=== PATIENT | female | born 1995 | race Two or more races ===

== ENCOUNTER 2017-08-02 13:32 | Emergency (ER) | payer MEDICAID ==
[~2017-08-02] VITALS: Ht 162.6 cm; Wt 66.2 kg
[2017-08-02 16:14] VITALS: BP 118/64
== END 2017-08-02 18:25 | disposition home or self-care (01) ==
LOC: ER 13:39
DX: O20.0 Threatened abortion (principal); O99.321 Drug use complicating pregnancy, first trimester; F12.10 Cannabis abuse, uncomplicated; F15.10 Other stimulant abuse, uncomplicated; O99.331 Smoking (tobacco) complicating pregnancy, first trimester; F17.210 Nicotine dependence, cigarettes, uncomplicated; Z3A.01 Less than 8 weeks gestation of pregnancy
CPT/HCPCS: 36415; 76801; 76817; 84702; 99285; J7030

== ENCOUNTER 2017-08-20 02:16 | Emergency (ER) | payer MEDICAID ==
[~2017-08-20] VITALS: Ht 162.6 cm; Wt 65.8 kg
[2017-08-20 03:17] VITALS: BP 93/49
[2017-08-20 04:46] LABS: Urine Specific Gravity 1.031 (1.001-1.035)
[2017-08-20 04:47] LABS: Urine Blood Normal /uL (Negative); Urine WBC 15 /hpf (0 - 5)
[2017-08-20 04:48] LABS: Urine Bacteria FEW /hpf (None Seen); Urine Mucus FEW (None Seen)
== END 2017-08-20 04:55 | disposition left against medical advice (07) ==
LOC: ER 02:17
DX: R11.2 Nausea with vomiting, unspecified (principal); Z53.21 Procedure and treatment not carried out due to patient leaving prior to being seen by health care provider
CPT/HCPCS: 81001

== ENCOUNTER 2019-10-27 09:45 | Observation (INO) | payer MEDICAID | END 2019-10-27 11:10 | disposition home or self-care (01) | DRG 560 | LOC: MERGE 09:45 → LDRP 09:45 | PROVIDERS: ADMIT Specialist; ATTEND Specialist | DX: O48.0 Post-term pregnancy (principal); Z37.0 Single live birth; Z3A.40 40 weeks gestation of pregnancy | CPT/HCPCS: 59025; 76818; 81002; G0378 ==

== ENCOUNTER 2019-10-29 08:34 | Observation (INO) | payer MEDICAID | END 2019-10-29 09:46 | disposition home or self-care (01) | DRG 566 | LOC: LDRP 08:34 → MERGE 08:34 → EDUNIT# 08:34 | PROVIDERS: ADMIT Specialist; ATTEND Specialist | DX: O48.0 Post-term pregnancy (principal); Z3A.40 40 weeks gestation of pregnancy | CPT/HCPCS: 59025; 76818; 81002; G0378 ==

== ENCOUNTER 2019-10-31 09:20 | Observation (INO) | payer MEDICAID ==
[2019-11-01] MEDS ORDERED: PREN-96 PO (13:00)
== END 2019-10-31 10:48 | disposition home or self-care (01) | DRG 566 ==
LOC: LDRP 09:20
PROVIDERS: ADMIT Specialist; ATTEND Specialist
DX: O48.0 Post-term pregnancy (principal); Z3A.40 40 weeks gestation of pregnancy
CPT/HCPCS: 59025; 76818; 81002; G0378

== ENCOUNTER 2019-10-31 23:33 | Observation (INO) | payer MEDICAID ==
[~2019-10-31] VITALS: Ht 162.6 cm; Wt 86.2 kg
[2019-11-01] MEDS ORDERED: PREN-96 PO (13:00)
== END 2019-11-01 01:11 | disposition home or self-care (01) | DRG 566 ==
LOC: LDRP 23:33
PROVIDERS: ADMIT Specialist; ATTEND Specialist
DX: O48.0 Post-term pregnancy (principal); O62.9 Abnormality of forces of labor, unspecified; Z3A.40 40 weeks gestation of pregnancy
CPT/HCPCS: 59025; 76818; 81002; 84112; G0378

== ENCOUNTER 2019-11-01 12:30 | Observation (INO) | payer MEDICAID ==
[2019-11-01] MEDS ORDERED: PREN-96 PO (13:00)
== END 2019-11-01 14:30 | disposition home or self-care (01) | DRG 566 ==
LOC: LDRP 12:30
PROVIDERS: ADMIT Specialist; ATTEND Specialist
DX: O62.9 Abnormality of forces of labor, unspecified (principal); O48.0 Post-term pregnancy; Z3A.40 40 weeks gestation of pregnancy
CPT/HCPCS: 59025; 81002; 84112; G0378

== ENCOUNTER 2019-11-02 11:00 | Observation (INO) | payer MEDICAID ==
[~2019-11-02 11:00] MED LIST: PREN-96 PO
== END 2019-11-02 11:40 | disposition home or self-care (01) | DRG 566 ==
LOC: LDRP 11:00
PROVIDERS: ADMIT Specialist; ATTEND Specialist
DX: O48.0 Post-term pregnancy (principal); Z3A.40 40 weeks gestation of pregnancy
CPT/HCPCS: 59025; 81002; G0378

== ENCOUNTER 2019-11-03 07:55 | Inpatient (IN) | payer MEDICAID ==
[~2019-11-03] VITALS: Ht 162.6 cm; Wt 86.2 kg
[2019-11-03] MEDS ORDERED: LACT. RINGERS/OXYTOCIN 20UNITS 1,000 ML IV SCH (08:23)
[2019-11-03] MEDS ORDERED: PHISODERM TOP SOLN 240ML BTL TOP PRN (08:30)
[2019-11-03] MEDS ORDERED: CARBOPROST TROMETHAMINE 250 MCG/1ML VIAL IM PRN (08:30)
[2019-11-03] MEDS ORDERED: METHYLERGONOVINE MALEATE 0.2 MG/ML AMP IM PRN (08:30)
[2019-11-03] MEDS ORDERED: NALBUPHINE HCL 10 MG/1ml INJECTION IV PRN (08:30)
[2019-11-03] MEDS ORDERED: DERMOPLAST 60ML BOTTLE TOP PRN (08:30)
[2019-11-03] MEDS ORDERED: LIDOCAINE 2%HCL (LOCAL ANESTH.) INJ 20ML MDV ID ONE (08:30)
[2019-11-03] MEDS ORDERED: PENICILLIN G POT 5MIL/D5 50ML 50 ML IV ONE (08:30)
[2019-11-03] MEDS ORDERED: WITCH HAZEL-GLYCERIN PAD TOP PRN (08:30)
[2019-11-03 09:42] LABS: Basophils # (auto) 0 10 ^3/uL (0-0.2); Basophils % (auto) 0.4 % (0.0-2.0); Eosinophils # (auto) 0.1 10 ^3/uL (0-0.8); Eosinophils % (auto) 0.8 % (0.0-7.0); Hematocrit 39.6 % (36.0-46.0); Hemoglobin 13.6 g/dL (12.2-16.2); Lymphocytes # (auto) 2.2 10 ^3/uL (0.4-5.4); Lymphocytes % (auto) 26.7 % (10.0-50.0); Mean Corpuscular Hemoglobin 30.9 pg (28.0-32.0); Mean Corpuscular Hgb Conc. 34.5 g/dL (32.0-36.0); Mean Corpuscular Volume 89.5 fL (80.0-100.0); Monocytes # (auto) 0.6 10 ^3/uL (0-1.3); Monocytes % (auto) 7.1 % (0.0-12.0); Neutrophils # (auto) 5.4 10 ^3/uL (1.6-8.6); Platelet Count (auto) 177 10^3/uL (140-450); Red Blood Cells 4.42 10^6/uL (4.0-5.20); Red Cell Distribution Width 14.6 % (11.8-14.3); White Blood Cell 8.3 10^3/uL (4.4-10.8)
[2019-11-03 09:48] LABS: Urine Bacteria NONE SEEN /hpf (None Seen); Urine Blood 2+ /uL (Negative); Urine Mucus FEW (None Seen); Urine Specific Gravity 1.017 (1.001-1.035); Urine WBC 9 /hpf (0 - 5)
[2019-11-03 10:00] LABS: Albumin 2.8 g/dL (3.4-5.0); Calcium 8.7 mg/dL (8.5-10.1); Potassium 3.6 mmol/L (3.5-5.1)
[2019-11-03] MEDS ORDERED: TERBUTALINE SULFATE 1 MG/ML 1ML VIAL SC ONE (10:00)
[2019-11-03 10:03] LABS: BUN/Creatinine Ratio 14.3; Bilirubin, Total 0.5 mg/dL (0.2-1.0); Total Protein 6.6 g/dL (6.4-8.2)
[2019-11-03 10:12] LABS: INR 0.92 (0.9-1.15); Partial Thromboplastin Time 27.4 sec (23.64-32.05)
[2019-11-03 10:25] LABS: Alcohol, Urine < 3.0 mg/dL (0-5); Amphetamine Screen, Urine NEGATIVE (NEGATIVE); Barbiturate Scree,Urine NEGATIVE (NEGATIVE); Benzodiazephine Screen, Urine NEGATIVE (NEGATIVE); Cannabinoid Screen, Urine NEGATIVE (NEGATIVE); Cocaine Screen, Urine NEGATIVE (NEGATIVE); Opiate Scree,Urine NEGATIVE (NEGATIVE); Phencyclidine Screen, Urine NEGATIVE (NEGATIVE)
[2019-11-03] MEDS ORDERED: BUTORPHANOL TARTRATE 2 MG/1 ML VIAL IV PRN (12:15)
[2019-11-03] MEDS ORDERED: PROMETHAZINE HCL 25 MG/ML 1ML IV PRN (12:15)
[2019-11-03] MEDS: LACTATED RINGER'S 1,000 ML IV SCH ×2 (12:33→15:05)
[2019-11-03] MEDS: PENICILLIN G POTASSIUM 2,500,000 UNITS in D5W 5% 50 ML IV SCH ×3 (12:55→20:31)
[2019-11-03] MEDS ORDERED: BUTORPHANOL TARTRATE 2 MG/1 ML VIAL IV ONE ×2 (18:15→19:00)
[2019-11-03] MEDS ORDERED: PROMETHAZINE HCL 25 MG/ML 1ML IM PRN (19:00)
[2019-11-03] MEDS ORDERED: LACT. RINGERS/OXYTOCIN 20UNITS 500 ML IV ONE (21:48)
[2019-11-03] MEDS ORDERED: IBUPROFEN 600 MG TAB PO PRN (22:00)
[2019-11-03] MEDS ORDERED: ACETAMINOPHEN 325 MG TAB PO PRN (22:00)
--- NOTE | 2019-11-03 23:40 | NUR ---
Ambulation: Patient OOB with standby assistance by RN. Patient ambulated to bathroom with steady gait. Patient unable to void at this time, verbalizes that she feels no urge to urinate. [facility] teaching provided with returned demonstration by patient. Clean gown provided and bed linen changed. Patient ambulated back to bed with steady gait and no distress noted.
[2019-11-04] VITALS (7 sets, daily range): BP systolic 105–122; BP diastolic 60–78
[2019-11-04 05:06] LABS: RPR Non Reactive (Non Reactive)
--- NOTE | 2019-11-04 12:00 | NUR ---
Report received from Caitie Ceja RN.
--- NOTE | 2019-11-04 12:58 | NUR ---
Patient encouraged to breastfeed. Benefits of and the risk of providing formula to infant was discussed. Patient verbalized understanding of the benefits and is aware of risk and insists on bottle-feeding.
--- NOTE | 2019-11-04 19:00 | NUR ---
IV removal IV DC'd with sterile technique, catheter fully intact. Pressure dressing applied to site. Patient tolerated procedure well. Addendum: 11/04/19 at 2040 by JOSE CYR RN Amended: Links added.
--- NOTE | 2019-11-04 22:50 | NUR ---
Bottle-feeding Education: Patient educated on POC for including supplementation with formula. Formula provided and instruction on formula preparation from the [facility] Beginning booklet reviewed with patient. Patient verbalizes understanding of teaching and agrees to comply.
[2019-11-05 03:00] VITALS: BP 109/64
[2019-11-05 06:35] VITALS: BP 131/80
--- NOTE | 2019-11-05 09:18 | NUR ---
Discharge: Discharge instructions given as ordered. Pt encouraged to follow up with [facility] as instructed. All questions and concerns addressed. Patient verbalized understanding. Medication reconciliation completed and copy given to patient. Discharge:
--- NOTE | 2019-11-05 09:39 | NUR ---
Discharge: Patient taken to vehicle via ambulation with all personal belongings, accompanied by staff and family member. No distress noted at time of departure, no adverse changes in status since initial assessment.
== END 2019-11-05 09:36 | disposition home or self-care (01) | DRG 560 ==
LOC: LDRP 07:55 → UNDOADMOB 07:55 → INTOOBSV 08:20 → OBSVTOIN 08:20 → LDRP 08:27
PROVIDERS: ADMIT Obstetrics & Gynecology; ATTEND Obstetrics & Gynecology
PROC: 10E0XZZ Delivery of Products of Conception, External Approach (ICD-10-PCS; principal; 2019-11-03)
PROC: 0HQ9XZZ Repair Perineum Skin, External Approach (ICD-10-PCS; 2019-11-03)
DX: O69.81X0 Labor and delivery complicated by cord around neck, without compression, not applicable or unspecified (principal); O70.0 First degree perineal laceration during delivery; O99.824 Streptococcus B carrier state complicating childbirth; Z37.0 Single live birth; Z3A.41 41 weeks gestation of pregnancy
CPT/HCPCS: 36415; 59025; 59409; 80053; 80307; 81001; 81002; 84112; 85025; 85610; 85730; 86592; 86850; 86900; 86901; 94760; 96365; 96366; 96372; 96374; 96375; G0378; J2540; J2590; J7060

== ENCOUNTER 2022-07-18 15:40 | Emergency (ER) | payer MEDICAID ==
[~2022-07-18] VITALS: Ht 165.1 cm; Wt 61.8 kg
[2022-07-18 16:52] LABS: Basophils # (auto) 0 10 ^3/uL (0-0.2); Basophils % (auto) 0.4 % (0.0-2.0); Eosinophils # (auto) 0.1 10 ^3/uL (0-0.8); Eosinophils % (auto) 0.9 % (0.0-7.0); Hematocrit 40.6 % (36.0-46.0); Hemoglobin 13.5 g/dL (12.2-16.2); Lymphocytes # (auto) 2.1 10 ^3/uL (0.4-5.4); Lymphocytes % (auto) 21.6 % (10.0-50.0); Mean Corpuscular Hemoglobin 29.6 pg (28.0-32.0); Mean Corpuscular Hgb Conc. 33.4 g/dL (32.0-36.0); Mean Corpuscular Volume 88.6 fL (80.0-100.0); Monocytes # (auto) 0.8 10 ^3/uL (0-1.3); Monocytes % (auto) 8.3 % (0.0-12.0); Neutrophils # (auto) 6.7 10 ^3/uL (1.6-8.6); Neutrophils % (auto) 68.8 % (37.0-80.0); Red Blood Cells 4.58 10^6/uL (4.0-5.20); Red Cell Distribution Width 14.5 % (11.8-14.3); White Blood Cell 9.7 10^3/uL (4.4-10.8)
[2022-07-18 17:09] LABS: Albumin 3.9 g/dL (3.4-5.0); Calcium 8.6 mg/dL (8.5-10.1); Potassium 3.7 mmol/L (3.5-5.1)
[2022-07-18 17:12] LABS: BUN/Creatinine Ratio 13.7; Bilirubin, Total 0.9 mg/dL (0.2-1.0); Total Protein 6.8 g/dL (6.4-8.2)
[2022-07-18 18:37] LABS: Urine Bacteria MOD /hpf (None Seen); Urine Blood Negative /uL (Negative); Urine Mucus FEW (None Seen); Urine Specific Gravity 1.015 (1.001-1.035); Urine WBC 16 /hpf (0 - 5)
[2022-07-18] MEDS ORDERED: CEPH-510 PO (18:56)
[2022-07-18 20:05] VITALS: BP 116/67
== END 2022-07-18 20:15 | disposition home or self-care (01) ==
LOC: ER 15:40
DX: O99.331 Smoking (tobacco) complicating pregnancy, first trimester (principal); N39.0 Urinary tract infection, site not specified; F17.210 Nicotine dependence, cigarettes, uncomplicated; F12.90 Cannabis use, unspecified, uncomplicated; F15.90 Other stimulant use, unspecified, uncomplicated; Z3A.01 Less than 8 weeks gestation of pregnancy; Z98.890 Other specified postprocedural states
CPT/HCPCS: 36415; 76801; 80053; 81001; 81025; 83690; 84702; 85025

== ENCOUNTER → 2022-08-02 | Outpatient (CLI) | payer MEDICAID ==
[~2022-08-02] MED LIST changes: +CEPH-510 PO
[2022-08-02 12:05] LABS: Basophils # (auto) 0 10 ^3/uL (0-0.2); Basophils % (auto) 0.1 % (0.0-2.0); Eosinophils # (auto) 0.1 10 ^3/uL (0-0.8); Eosinophils % (auto) 1.5 % (0.0-7.0); Hematocrit 36.9 % (36.0-46.0); Lymphocytes # (auto) 1.5 10 ^3/uL (0.4-5.4); Lymphocytes % (auto) 19.1 % (10.0-50.0); Mean Corpuscular Hemoglobin 30.5 pg (28.0-32.0); Mean Corpuscular Hgb Conc. 35.2 g/dL (32.0-36.0); Mean Corpuscular Volume 86.5 fL (80.0-100.0); Monocytes # (auto) 0.6 10 ^3/uL (0-1.3); Monocytes % (auto) 8.4 % (0.0-12.0); Neutrophils # (auto) 5.4 10 ^3/uL (1.6-8.6); Neutrophils % (auto) 70.9 % (37.0-80.0); Red Blood Cells 4.26 10^6/uL (4.0-5.20); Red Cell Distribution Width 13.9 % (11.8-14.3); White Blood Cell 7.7 10^3/uL (4.4-10.8)
[2022-08-02 13:34] LABS: Alcohol, Urine < 3.0 mg/dL (0-10); Amphetamine Screen, Urine NEGATIVE (NEGATIVE); Barbiturate Scree,Urine NEGATIVE (NEGATIVE); Benzodiazephine Screen, Urine NEGATIVE (NEGATIVE); Cannabinoid Screen, Urine POSITIVE (NEGATIVE); Cocaine Screen, Urine NEGATIVE (NEGATIVE); Opiate Scree,Urine NEGATIVE (NEGATIVE); Phencyclidine Screen, Urine NEGATIVE (NEGATIVE)
[2022-08-03 05:07] LABS: RPR Non Reactive (Non Reactive)
== END | disposition home or self-care (01) ==
LOC: LAB 11:21
PROVIDERS: ATTEND Obstetrics & Gynecology
DX: Z34.80 Encounter for supervision of other normal pregnancy, unspecified trimester (principal); Z31.430 Encounter of female for testing for genetic disease carrier status for procreative management; Z36.0 Encounter for antenatal screening for chromosomal anomalies; N39.0 Urinary tract infection, site not specified; Z3A.00 Weeks of gestation of pregnancy not specified
CPT/HCPCS: 36415; 80307; 83036; 84112; 84144; 84702; 85025; 86592; 86703; 86762; 86850; 86900; 86901; 87086; 87340

== ENCOUNTER 2022-08-23 11:46 | Emergency (ER) | payer MEDICAID ==
[~2022-08-23] VITALS: Ht 165.1 cm; Wt 63.5 kg
[2022-08-23 12:45] LABS: Basophils # (auto) 0 10 ^3/uL (0-0.2); Basophils % (auto) 0.2 % (0.0-2.0); Eosinophils # (auto) 0.1 10 ^3/uL (0-0.8); Eosinophils % (auto) 0.9 % (0.0-7.0); Hematocrit 37.4 % (36.0-46.0); Hemoglobin 12.6 g/dL (12.2-16.2); Lymphocytes # (auto) 1.8 10 ^3/uL (0.4-5.4); Lymphocytes % (auto) 21.5 % (10.0-50.0); Mean Corpuscular Hemoglobin 30.1 pg (28.0-32.0); Mean Corpuscular Hgb Conc. 33.7 g/dL (32.0-36.0); Mean Corpuscular Volume 89.4 fL (80.0-100.0); Monocytes # (auto) 0.4 10 ^3/uL (0-1.3); Monocytes % (auto) 5.2 % (0.0-12.0); Neutrophils % (auto) 72.2 % (37.0-80.0); Red Blood Cells 4.18 10^6/uL (4.0-5.20); Red Cell Distribution Width 14.5 % (11.8-14.3); White Blood Cell 8.3 10^3/uL (4.4-10.8)
[2022-08-23 13:08] VITALS: BP 101/56
[2022-08-23 13:08] LABS: Albumin 3.2 g/dL (3.4-5.0); BUN/Creatinine Ratio 18.6; Calcium 8.4 mg/dL (8.5-10.1); Potassium 3.7 mmol/L (3.5-5.1)
[2022-08-23 13:11] LABS: Bilirubin, Total 0.9 mg/dL (0.2-1.0)
[2022-08-23] MEDS: PENICILLIN G BENZ 1200000 UNITS/2 ML SYRG IM ONE (13:27)
== END 2022-08-23 13:36 | disposition home or self-care (01) ==
LOC: ER 11:46
DX: O98.111 Syphilis complicating pregnancy, first trimester (principal); Z3A.11 11 weeks gestation of pregnancy; Z51.81 Encounter for therapeutic drug level monitoring
CPT/HCPCS: 36415; 80053; 83605; 84702; 85025; 86850; 86900; 86901; 96372; 99283; J0561

== ENCOUNTER 2022-08-31 19:31 | Emergency (ER) | payer MEDICAID ==
[~2022-08-31] VITALS: Ht 165.1 cm; Wt 64.0 kg
[2022-08-31 20:34] VITALS: BP 104/76
[2022-08-31] MEDS ORDERED: PENICILLIN G BENZ 1200000 UNITS/2 ML SYRG IM ONE (21:30)
== END 2022-08-31 22:00 | disposition home or self-care (01) ==
LOC: ER 19:31
DX: O98.111 Syphilis complicating pregnancy, first trimester (principal); Z3A.12 12 weeks gestation of pregnancy
CPT/HCPCS: 96372; 99283; J0561

== ENCOUNTER 2022-09-08 20:55 | Emergency (ER) | payer MEDICAID ==
[~2022-09-08] VITALS: Ht 162.6 cm; Wt 64.4 kg
[2022-09-09] MEDS ORDERED: PENICILLIN G BENZ 1200000 UNITS/2 ML SYRG IM ONE (00:30)
[2022-09-09 01:05] VITALS: BP 115/74
== END 2022-09-09 01:10 | disposition home or self-care (01) ==
LOC: ER 20:55
DX: Z00.00 Encounter for general adult medical examination without abnormal findings (principal); N89.8 Other specified noninflammatory disorders of vagina; Z79.899 Other long term (current) drug therapy
CPT/HCPCS: 96372; 99283; J0561

== ENCOUNTER → 2022-12-25 | Outpatient (CLI) | payer MEDICAID ==
[2022-12-25 08:54] LABS: Basophils # (auto) 0 10 ^3/uL (0-0.2); Basophils % (auto) 0.3 % (0.0-2.0); Eosinophils # (auto) 0.1 10 ^3/uL (0-0.8); Eosinophils % (auto) 1.4 % (0.0-7.0); Hematocrit 37.4 % (36.0-46.0); Hemoglobin 13.2 g/dL (12.2-16.2); Lymphocytes # (auto) 2.8 10 ^3/uL (0.4-5.4); Lymphocytes % (auto) 31.5 % (10.0-50.0); Mean Corpuscular Hemoglobin 31.4 pg (28.0-32.0); Mean Corpuscular Hgb Conc. 35.2 g/dL (32.0-36.0); Mean Corpuscular Volume 89.1 fL (80.0-100.0); Monocytes # (auto) 0.6 10 ^3/uL (0-1.3); Monocytes % (auto) 6.8 % (0.0-12.0); Neutrophils # (auto) 5.3 10 ^3/uL (1.6-8.6); Nucleated Red Blood Cells % 0.1 %; Red Cell Distribution Width 14.2 % (11.8-14.3); White Blood Cell 8.8 10^3/uL (4.4-10.8)
[2022-12-26 08:07] LABS: RPR Non Reactive (Non Reactive)
== END | disposition home or self-care (01) ==
LOC: LAB 08:16
PROVIDERS: ATTEND Obstetrics & Gynecology
DX: Z34.80 Encounter for supervision of other normal pregnancy, unspecified trimester (principal); Z3A.00 Weeks of gestation of pregnancy not specified
CPT/HCPCS: 36415; 82951; 84112; 85025; 86592

== ENCOUNTER 2023-02-06 10:10 | Observation (INO) | payer MEDICAID ==
[~2023-02-06] VITALS: Ht 165.1 cm; Wt 79.4 kg
[2023-02-06] MEDS ORDERED: ONDANSETRON HCL 4 MG/2 ML VIAL IV ONE (11:30)
[2023-02-06] MEDS ORDERED: LACTATED RINGER'S 1,000 ML IV ONE (11:30)
[2023-02-06] MEDS ORDERED: METO-281 PO (12:49)
== END 2023-02-06 13:05 | disposition home or self-care (01) ==
LOC: LDRP 10:10
PROVIDERS: ADMIT Obstetrics & Gynecology; ATTEND Obstetrics & Gynecology
DX: O24.419 Gestational diabetes mellitus in pregnancy, unspecified control (principal); O36.8130 Decreased fetal movements, third trimester, not applicable or unspecified; O21.2 Late vomiting of pregnancy; O26.893 Other specified pregnancy related conditions, third trimester; R35.0 Frequency of micturition; R10.9 Unspecified abdominal pain; Z3A.35 35 weeks gestation of pregnancy
CPT/HCPCS: 59025; 76818; 81002; 82948; 82962; 94760; 96360; 96361; 96374; G0378; J2405

== ENCOUNTER 2023-02-13 11:00 | Observation (INO) | payer MEDICAID ==
[~2023-02-13 11:00] MED LIST changes: +METO-281 PO
== END 2023-02-13 13:09 | disposition home or self-care (01) ==
LOC: LDRP 11:00
PROVIDERS: ADMIT Obstetrics & Gynecology; ATTEND Obstetrics & Gynecology
DX: O24.419 Gestational diabetes mellitus in pregnancy, unspecified control (principal); O99.323 Drug use complicating pregnancy, third trimester; F12.90 Cannabis use, unspecified, uncomplicated; Z3A.36 36 weeks gestation of pregnancy
CPT/HCPCS: 59025; 76818; 81002; 82948; 82962; 94760; G0378

== ENCOUNTER → 2023-02-20 | Outpatient (CLI) | payer MEDICAID ==
[2023-02-20 09:41] LABS: Basophils # (auto) 0.1 10 ^3/uL (0-0.2); Basophils % (auto) 0.6 % (0.0-2.0); Eosinophils # (auto) 0.1 10 ^3/uL (0-0.8); Eosinophils % (auto) 1.1 % (0.0-7.0); Hematocrit 38.1 % (36.0-46.0); Hemoglobin 13.4 g/dL (12.2-16.2); Lymphocytes # (auto) 2.8 10 ^3/uL (0.4-5.4); Lymphocytes % (auto) 30.6 % (10.0-50.0); Mean Corpuscular Hemoglobin 30.9 pg (28.0-32.0); Mean Corpuscular Hgb Conc. 35.2 g/dL (32.0-36.0); Mean Corpuscular Volume 87.6 fL (80.0-100.0); Monocytes # (auto) 0.6 10 ^3/uL (0-1.3); Neutrophils # (auto) 5.5 10 ^3/uL (1.6-8.6); Neutrophils % (auto) 60.7 % (37.0-80.0); Nucleated Red Blood Cells % 0.1 %; Red Blood Cells 4.35 10^6/uL (4.0-5.20); Red Cell Distribution Width 14.1 % (11.8-14.3); White Blood Cell 9.1 10^3/uL (4.4-10.8)
[2023-02-21 08:06] LABS: RPR Non Reactive (Non Reactive)
== END | disposition home or self-care (01) ==
LOC: LAB 09:17
PROVIDERS: ATTEND Obstetrics & Gynecology
DX: Z34.80 Encounter for supervision of other normal pregnancy, unspecified trimester (principal); Z3A.00 Weeks of gestation of pregnancy not specified
CPT/HCPCS: 36415; 84112; 85025; 86592

== ENCOUNTER 2023-02-27 15:26 | Emergency (ER) | payer MEDICAID ==
[~2023-02-27] VITALS: Ht 162.6 cm; Wt 82.2 kg
[2023-02-27] MEDS ORDERED: TETRACAINE 1% INJ 2 ML VIAL IJ ONE (19:10)
[2023-02-27] MEDS ORDERED: PENICILLIN G BENZ 600000 UNIT/ML 1ML SYRG IM ONE ×2 (20:45→22:45)
[2023-02-27] MEDS ORDERED: PENICILLIN G BENZ 1200000 UNITS/2 ML SYRG IM ONE (22:54)
[2023-02-27 23:10] VITALS: BP 114/70; PULSE 65; RESP 16; TEMP 98.1; O2SAT 99
== END 2023-02-27 23:29 | disposition home or self-care (01) ==
LOC: ER 15:26
DX: Z02.89 Encounter for other administrative examinations (principal); Z86.19 Personal history of other infectious and parasitic diseases; Z79.899 Other long term (current) drug therapy
CPT/HCPCS: 96372; 99283; J0561

== ENCOUNTER 2023-02-28 11:28 | Observation (INO) | payer MEDICAID | END 2023-02-28 13:05 | disposition home or self-care (01) | LOC: UNDOADMOB 11:28 → LDRP 11:28 → UNDODISOB 13:05 | PROVIDERS: ADMIT Obstetrics & Gynecology; ATTEND Obstetrics & Gynecology | DX: O24.419 Gestational diabetes mellitus in pregnancy, unspecified control (principal); Z3A.39 39 weeks gestation of pregnancy | CPT/HCPCS: 59025; 76818; 81002; 82962; 94760; G0378 ==

== ENCOUNTER 2023-03-06 11:13 | Observation (INO) | payer MEDICAID | END 2023-03-06 13:00 | disposition home or self-care (01) | LOC: UNDOADMOB 11:13 → LDRP 11:13 → UNDODISOB 13:00 | PROVIDERS: ADMIT Obstetrics & Gynecology; ATTEND Obstetrics & Gynecology | DX: O24.419 Gestational diabetes mellitus in pregnancy, unspecified control (principal); O99.323 Drug use complicating pregnancy, third trimester; F12.90 Cannabis use, unspecified, uncomplicated; Z3A.39 39 weeks gestation of pregnancy | CPT/HCPCS: 59025; 76818; 81002; 82948; 82962; 94760; G0378 ==

== ENCOUNTER 2023-03-08 10:05 | Inpatient (IN) | payer MEDICAID ==
[~2023-03-08] VITALS: Ht 165.1 cm; Wt 82.1 kg
[2023-03-08] MEDS ORDERED: LACTATED RINGER'S 1,000 ML IV SCH (14:30)
[2023-03-08] MEDS ORDERED: PROMETHAZINE HCL 25 MG/ML 1ML IV PRN (14:30)
[2023-03-08] MEDS ORDERED: LIDOCAINE 2%HCL (LOCAL ANESTH.) INJ 20ML MDV IJ PRN (14:30)
[2023-03-08] MEDS ORDERED: ACCU-CHEK COMFORT CURVE STRIP VI ONE (15:00)
[2023-03-08 15:21] LABS: Basophils # (auto) 0.1 10 ^3/uL (0-0.2); Basophils % (auto) 0.5 % (0.0-2.0); Eosinophils # (auto) 0 10 ^3/uL (0-0.8); Eosinophils % (auto) 0.4 % (0.0-7.0); Hematocrit 39.5 % (36.0-46.0); Hemoglobin 13.4 g/dL (12.2-16.2); Lymphocytes % (auto) 17.7 % (10.0-50.0); Mean Corpuscular Hemoglobin 29.9 pg (28.0-32.0); Mean Corpuscular Hgb Conc. 33.9 g/dL (32.0-36.0); Mean Corpuscular Volume 88.4 fL (80.0-100.0); Monocytes # (auto) 0.7 10 ^3/uL (0-1.3); Monocytes % (auto) 6.3 % (0.0-12.0); Neutrophils # (auto) 8.5 10 ^3/uL (1.6-8.6); Neutrophils % (auto) 75.1 % (37.0-80.0); Red Blood Cells 4.47 10^6/uL (4.0-5.20); Red Cell Distribution Width 14.5 % (11.8-14.3); White Blood Cell 11.3 10^3/uL (4.4-10.8)
[2023-03-08 15:27] LABS: Urine Bacteria NONE SEEN /hpf (None Seen); Urine Blood Negative /uL (Negative); Urine Specific Gravity 1.008 (1.001-1.035); Urine WBC <1 /hpf (0 - 5)
[2023-03-08 15:31] LABS: INR 0.93 (0.9-1.15); Partial Thromboplastin Time 26.2 SEC (24.5-34.5)
[2023-03-08 15:34] LABS: Calcium 8.4 mg/dL (8.5-10.1); Potassium 3.7 mmol/L (3.5-5.1)
[2023-03-08 15:34] LABS: Alcohol, Urine < 3.0 mg/dL (0-10); Barbiturate Scree,Urine NEGATIVE (NEGATIVE)
[2023-03-08 15:37] LABS: BUN/Creatinine Ratio 19.2 (10.0-20.0); Bilirubin, Total 0.8 mg/dL (0.2-1.0); Total Protein 6.8 g/dL (6.4-8.2)
[2023-03-08 15:38] LABS: Amphetamine Screen, Urine NEGATIVE (NEGATIVE); Benzodiazephine Screen, Urine NEGATIVE (NEGATIVE); Cannabinoid Screen, Urine NEGATIVE (NEGATIVE); Cocaine Screen, Urine NEGATIVE (NEGATIVE); Opiate Scree,Urine NEGATIVE (NEGATIVE); Phencyclidine Screen, Urine NEGATIVE (NEGATIVE)
[2023-03-08] MEDS: miSOPROStol 50 MCG per PRE-CUT 1/2 TAB PO PRN ×2 (16:30→20:30)
[2023-03-08] MEDS ORDERED: ONDANSETRON HCL 4 MG/2 ML VIAL IV PRN (20:30)
[2023-03-08] MEDS ORDERED: METHYLERGONOVINE MALEATE 0.2 MG/ML AMP IM PRN (20:30)
[2023-03-08] MEDS ORDERED: CARBOPROST TROMETHAMINE 250 MCG/1ML VIAL IM PRN (20:30)
[2023-03-08] MEDS ORDERED: MINERAL OIL TOPICAL 10ml TOP PRN (20:30)
[2023-03-08] MEDS ORDERED: TRANEXAMIC ACID 1,000 MG in SODIUM CHL 0.9% 100 ML IV PRN (20:30)
[2023-03-08] MEDS ORDERED: diphenhdrAMINE HCL 50 MG/1 ML VL IV PRN (20:30)
[2023-03-08] MEDS ORDERED: fentaNYL CITRATE 100 MCG/2 ML VL IV ONE (20:30)
[2023-03-08] MEDS ORDERED: LACT. RINGERS/OXYTOCIN 20UNITS 500 ML IV ONE ×2 (20:30→21:00)
[2023-03-08] MEDS ORDERED: ACETAMINOPHEN 325 MG TAB PO PRN (20:30)
[2023-03-08] MEDS ORDERED: TERBUTALINE SULFATE 1 MG/ML 1ML VIAL SC PRN (20:30)
[2023-03-08] MEDS ORDERED: PROMETHAZINE HCL 25 MG/ML 1ML IM ONE (20:30)
[2023-03-08] MEDS ORDERED: miSOPROStol 100 mcg TAB SL PRN (20:30)
[2023-03-09] MEDS ORDERED: DIPHENOXYLATE W/ATROPINE 2.5 MG TAB PO SCH
[2023-03-09] MEDS ORDERED: LACT. RINGERS/OXYTOCIN 20UNITS 1,000 ML IV SCH (01:30)
[2023-03-09] MEDS ORDERED: fentaNYL CITRATE 100 MCG/2 ML VL IV PRN (02:00)
[2023-03-09] MEDS ORDERED: ONDANSETRON ODT 4 MG TAB PO PRN (02:45)
[2023-03-09] MEDS ORDERED: ACETAMINOPHEN 325 MG TAB PO PRN (02:45)
[2023-03-09 03:00] VITALS: BP 118/60; PULSE 78; RESP 18; TEMP 98.6
[2023-03-09] MEDS: DERMOPLAST 60ML BOTTLE TOP PRN (03:42)
[2023-03-09] MEDS: WITCH HAZEL-GLYCERIN PAD TOP PRN (03:42)
[2023-03-09] MEDS: PHISODERM TOP SOLN 240ML BTL TOP PRN (03:42)
[2023-03-09] MEDS ORDERED: PROMETHAZINE HCL 25 MG/ML 1ML IM PRN (04:00)
[2023-03-09 06:07] LABS: RPR Non Reactive (Non Reactive)
[2023-03-09 06:42] VITALS: BP 100/56; PULSE 68; RESP 18; TEMP 98.5
[2023-03-09] MEDS: IBUPROFEN 600 MG TAB PO PRN ×2 (07:10→20:02)
[2023-03-09 11:05] VITALS: BP 98/55; PULSE 60; RESP 16; TEMP 98.9; O2SAT 98
[2023-03-09 14:18] LABS: Basophils # (auto) 0 10 ^3/uL (0-0.2); Basophils % (auto) 0.3 % (0.0-2.0); Eosinophils # (auto) 0 10 ^3/uL (0-0.8); Eosinophils % (auto) 0.3 % (0.0-7.0); Hematocrit 36.3 % (36.0-46.0); Hemoglobin 12.6 g/dL (12.2-16.2); Mean Corpuscular Hemoglobin 30.6 pg (28.0-32.0); Mean Corpuscular Hgb Conc. 34.7 g/dL (32.0-36.0); Mean Corpuscular Volume 88.2 fL (80.0-100.0); Monocytes # (auto) 0.6 10 ^3/uL (0-1.3); Monocytes % (auto) 5.9 % (0.0-12.0); Neutrophils % (auto) 74.5 % (37.0-80.0); Nucleated Red Blood Cells % 0.1 %; Red Blood Cells 4.12 10^6/uL (4.0-5.20); Red Cell Distribution Width 15.1 % (11.8-14.3); White Blood Cell 10.7 10^3/uL (4.4-10.8)
[2023-03-09 15:15] VITALS: BP 110/63; PULSE 68; RESP 15; TEMP 98.4; O2SAT 97
[2023-03-09] MEDS ORDERED: DOCU-265 PO (18:47)
[2023-03-09] MEDS ORDERED: IBU600T PO (18:47)
[2023-03-09] MEDS ORDERED: ACET-1882 PO (18:47)
[2023-03-09] MEDS ORDERED: PREN-96 PO (18:47)
[2023-03-09 19:00] VITALS: BP 100/40; PULSE 65; RESP 18; TEMP 97.9
[2023-03-09] MEDS ORDERED: DOCUSATE SOD 100 MG CAP PO SCH (22:00)
[2023-03-09 22:49] VITALS: BP 126/78; PULSE 65; RESP 18; TEMP 98.4; O2SAT 97
[2023-03-10 02:55] VITALS: BP 116/74; PULSE 64; RESP 17; TEMP 98.7; O2SAT 98
[2023-03-10] MEDS: WITCH HAZEL-GLYCERIN PAD TOP PRN ×2 (04:58→08:05)
[2023-03-10] MEDS: DERMOPLAST 60ML BOTTLE TOP PRN (07:58)
[2023-03-10] MEDS: PHISODERM TOP SOLN 240ML BTL TOP PRN (07:58)
[2023-03-10] MEDS: IBUPROFEN 600 MG TAB PO PRN (08:05)
[2023-03-10 11:20] VITALS: BP 106/63; PULSE 66; RESP 16; TEMP 98.1; O2SAT 98
== END 2023-03-10 15:55 | disposition home or self-care (01) | DRG 560 ==
LOC: LDRP 14:25
PROVIDERS: ADMIT Obstetrics & Gynecology; ATTEND Obstetrics & Gynecology
PROC: 10E0XZZ Delivery of Products of Conception, External Approach (ICD-10-PCS; principal; 2023-03-07)
PROC: 0KQM0ZZ Repair Perineum Muscle, Open Approach (ICD-10-PCS; 2023-03-07)
DX: O24.420 Gestational diabetes mellitus in childbirth, diet controlled (principal); Z37.0 Single live birth; D62 Acute posthemorrhagic anemia; O48.0 Post-term pregnancy; O70.1 Second degree perineal laceration during delivery; O90.81 Anemia of the puerperium; Z3A.40 40 weeks gestation of pregnancy
CPT/HCPCS: 36415; 59409; 80053; 80307; 81001; 82962; 85025; 85610; 85730; 86592; 86850; 86900; 86901; 94760; 96360; 96361; 96365; 96366; 96372; 96374; G0378; J2590

== ENCOUNTER 2025-01-02 16:15 | Emergency (ER) | payer MEDICAID ==
[~2025-01-02] VITALS: Ht 165.1 cm; Wt 72.0 kg
[~2025-01-02 16:15] MED LIST changes: +ACET-1882 PO; -CEPH-510 PO; +DOCU-265 PO; +IBU600T PO; -METO-281 PO
--- NOTE | 2025-01-02 16:49 | ED.PDOC ---
Back pain HPI HPI Comments right 5th toe pain after catching it on something on the playground Chief Complaint: Lower Extremity Time Seen by MD: 16:29 Primary Care Provider: [facility] Reviewed Notes: Nurses Notes, Medications, Allergies Allergies: Coded Allergies: NO KNOWN ALLERGIES (Unverified , 05/26/15) Home Meds Active Scripts Ibuprofen Micronized (MOTRIN TABLET) 600 Mg Tb, 600 MG PO Q6HP PRN for 15 Days, #60 TAB Prov:SOILA GOLDSTEIN [facility] 03/09/23 Docusate Sodium (Docusate Sodium) 100 Mg Cap, 200 MG PO HS PRN for 30 Days, #30 CAP Prov:ANGELITASHERRIULISES [facility] 03/09/23 Acetaminophen (Acetaminophen) 325 Mg Tab, 650 MG PO Q6HPRN PRN for 10 Days, #80 TAB Prov:ANGELITASOILA [facility] 03/09/23 Vit W/ Ferrous Fumara ( One Daily) Daily Tab, 1 TAB PO DAILY, #90 TAB 3 Refills Prov:SOILA GOLDSTEIN [facility] 03/09/23 Information Source: Patient, Past Medical Record (last admit was 03/08/23 for child ) Mode of Arrival: Ambulatory Timing: Minutes Duration: Since onset Severity: Mild Prehospital treatment: None Quality: Aching Onset: Twisting History of: None Modifying Factors: Movement Associated signs and symptoms: None Past Medical History PAST MEDICAL HISTORY: Denies Surgical History: Denies all surgeries 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 Hx Family History Family History: Reviewed,noncontributory to illness Social History Smoker: Non-Smoker Alcohol: Denies ETOH Use Drugs: Denies Drug Use Lives In: Home Constitutional: denies: chills, diaphoresis, fatigue, fever, malaise, sweats, weakness, others EENTM: denies: blurred vision, double vision, ear bleeding, ear discharge, ear drainage, ear pain, ear ringing, eye pain, eye redness, hearing loss, mouth pain, mouth swelling, nasal discharge, nose bleeding, nose congestion, nose pain, photophobia, tearing, throat pain, throat swelling, voice changes, others Respiratory: denies: cough, hemoptysis, orthopnea, SOB at rest, shortness of breath, SOB with excertion, stridor, wheezing, others Cardiovascular: denies: chest pain, dizzy spells, diaphoresis, Dyspnea on exertion, edema, irregular heart beat, left arm pain, lightheadedness, palpitations, PND, syncope, others Gastrointestinal: denies: abdomen distended, abdominal pain, blood streaked bowels, constipated, diarrhea, dysphagia, difficulty swallowing, hematemesis, melena, nausea, poor appetite, poor fluid intake, rectal bleeding, rectal pain, vomiting, others Genitourinary: denies: abnormal vagina bleeding, burning, dyspareunia, dysuria, flank pain, frequency, hematuria, incontinence, pain, , vagina discharge, urgency, others Neurological: denies: dizziness, fainting, headache, left sided numbness, left sided weakness, numbness, paresthesia, pre-existing deficit, right sided numbness, right sided weakness, seizure, speech problems, tingling, tremors, weakness, others Musculoskeletal: reports: others (right 5th toe); denies: back pain, gout, joint pain, joint swelling, muscle pain, muscle stiffness, neck pain Integumetry: denies: bruises, change in color, change in hair/nails, dryness, laceration, lesions, lumps, rash, wounds, others Allergic/Immunocompromised: denies: Difficulty Healing, Frequent Infections, Hives, Itching, others Hematologic/Lymphatic: denies: anemia, blood clots, easy bleeding, easy bruising, swollen glands, others Endocrine: denies: excessive hunger, excessive sweating, excessive thirst, excessive urination, flushing, intolerance to cold, intolerance to heat, unexplained weight gain, unexplained weight loss, others Psychiatric: denies: anxiety, bipolar disorder, depression, hopeless, panic disorder, schizophrenia, sleepless, suicidal, others All Other Systems: Reviewed and Negative Physical Exam General Appearance: No Apparent Distress, Normal HEENT: Normal ENT Inspection, Pharynx Normal, TMs Normal Neck: Full Range of Motion, Non-Tender, Normal, Normal Inspection Respiratory: Chest Non-Tender, Lungs Clear, No Accessory Muscle Use, No Respiratory Distress, Normal Breath Sounds Cardiovascular: No Edema, No JVD, No Murmur, No Gallop, Normal Peripheral Pulses, Regular Rate/Rhythm Breast Exam: Deferred Gastrointestinal: No Organomegaly, Non Tender, No Pulsatile Mass, Normal Bowel Sounds, Soft Genitalia: Deferred Pelvic: Deferred Rectal: Deferred Extremities: No calf tenderness, Normal capillary refill, Normal inspection, Normal range of motion, No pedal edema, Swelling, Tender Musculoskeletal : Apperance: Normal Neurologic: Alert, tractor engine mechanic II-XII nml as Tested, No Motor Deficits, Normal Affect, Normal Mood, No Sensory Deficits Cerebellar Function: Normal Reflexes: Normal Skin: Dry, Normal Color, Warm Lymphatic: No Adenopathy Was a procedure done? Was a procedure done?: Yes Sedation Sedation?: No Informed consent obtained: Yes Other Procedure Procedure left 4th, 5th toe sky tape splint good neurovascular functions Informed consent obtained: Yes Back Pain Differential Dx Differential Diagnosis: N/A Other Differential Diagnosis fracture, dislocation, strain, sprain, contusion X-Ray, Labs, Meds, VS Vital Signs Date Time Temp Pulse Resp B/P (MAP) Pulse Ox O2 Delivery O2 Flow Rate FiO2 01/02/25 16:38 98.7 53 16 111/65 (80) 99 98.7 Time of 1ST Reevaluation: 17:42 Reevaluation 1ST: Improved Patient Education/Counseling: Diagnosis, Treatment, Prognosis, Need For Follow Up Family Education/Counseling: No Family Present Departure 1 Departure Time of Disposition: 17:43 Impression: Primary Impression: Toe fracture, right Qualified Codes: S92.534A - Nondisplaced fracture of distal phalanx of right lesser toe(s), initial encounter for closed fracture Disposition: 01 HOME / SELF CARE / HOMELESS Condition: Good Written Prescriptions elevate, cold compress, rest. use crutched for ambulation. follow up with your doctor in 3 days e-Prescriptions Ibuprofen Micronized (MOTRIN TABLET) 600 Mg Tb 600 MG PO TID PRN, #40 TAB *Black box warning-NSAIDS can increase risk of [place] & hypertension, GI irritation, ulceration, bleed, perferation. Do not use post cardiac surgery. Use short duration/lowest effective dose. Prov: PAM MANJARREZ MD 01/02/25 Discharged With: Self Critical Care Note Critical Care Time?: No Stability Stability form required: No PAM MANJARREZ MD January 02, 2025 16:49
--- NOTE | 2025-01-02 17:29 | DVH ---
EXAM: XY R 5TH TOE XRAY INDICATION: injury TECHNIQUE: 3 views of the right 5th toe COMPARISON: None FINDINGS/IMPRESSION: Nondisplaced fracture of the 4th distal phalangeal base surrounding soft tissue swelling. Contour irr egularity of the 5th metatarsal neck, which may be exaggerated secondarya to patient positioning vers us nondisplaced fracture
[2025-01-02] MEDS ORDERED: IBU600T PO (17:44)
[2025-01-02 20:54] VITALS: BP 105/69; PULSE 60; RESP 18; TEMP 98.1; O2SAT 97
== END 2025-01-02 21:02 | disposition home or self-care (01) ==
LOC: ER 16:15
DX: S92.534A Nondisplaced fracture of distal phalanx of right lesser toe(s), initial encounter for closed fracture (principal); Z79.899 Other long term (current) drug therapy; W22.8XXA Striking against or struck by other objects, initial encounter; Y93.89 Activity, other specified; Y92.39 Other specified sports and athletic area as the place of occurrence of the external cause; Y99.8 Other external cause status
CPT/HCPCS: 73660